=== PATIENT | female | born 1980 | race Caucasian/White ===

== ENCOUNTER → 2024-03-08 | Emergency (ER) | payer BC ==
[~2024-03-08] VITALS: Ht 167.6 cm; Wt 81.8 kg
[~2024-03-08] MED LIST: LOSA-382 PO
[2024-03-08 11:43] VITALS: TEMP 98.3
[2024-03-08 12:51] LABS: BASOPHILS % (AUTO) 1.2 % (0.0-2.0); EOSINOPHILS % (AUTO) 2.8 % (1.0-6.0); HEMOGLOBIN 12.4 g/dL (12.0-16.0); LYMPHOCYTES # (AUTO) 1.8 K/uL (1.0-4.8); LYMPHOCYTES % (AUTO) 24.4 % (22.0-44.0); MEAN CORPUSCULAR HEMOGLOBIN 30.8 pg (26.0-34.0); MEAN CORPUSCULAR HGB CONC 33.6 G/dL (31.0-37.0); MEAN CORPUSCULAR VOLUME 92 fL (80-100); MONOCYTES # (AUTO) 0.7 K/uL (0.1-1.0); MONOCYTES % (AUTO) 9.2 % (2.0-9.0); NEUTROPHILS # (AUTO) 4.7 K/uL (1.8-7.7); NEUTROPHILS % (AUTO) 62.4 % (40.0-70.0); PLATELET COUNT (AUTO) 241 K/uL (150-450); RED BLOOD CELL COUNT(AUTO) 4.04 MIL/uL (4.00-5.20); RED CELL DISTRIBUTION WIDTH 14.2 % (11.5-14.5); WHITE BLOOD COUNT (AUTO) 7.5 K/uL (4.5-11.0)
[2024-03-08] MEDS: FAMOTIDINE 20 MG TABLET PO ONE (12:54)
[2024-03-08] MEDS: MAG HYDROX/ALUMINUM HYD/SIMETH 30 ML SUSPENSION UDCUP PO ONE (12:54)
[2024-03-08] MEDS: ACETAMINOPHEN 500 MG TABLET PO ONE (12:54)
[2024-03-08 12:56] LABS: CALCIUM, TOTAL 8.1 mg/dL (8.8-10.5); CREATININE 1.27 mg/dL (0.60-1.30); POTASSIUM 3.8 mmol/L (3.5-5.1)
[2024-03-08 13:40] LABS: TROPONIN I-HIGH SENSITIVITY 5 ng/L (<51)
[2024-03-08 15:14] VITALS: BP 155/99; PULSE 70; RESP 16
== END | disposition still patient (30) ==
LOC: EMS 11:33
DX: R07.89 Other chest pain (principal); I10 Essential (primary) hypertension
CPT/HCPCS: 71045; 80048; 84484; 85025; 93005; 99284; 99285; 36415-L1; 36415-TC